=== PATIENT | female | born 1995 | race Caucasian/White ===

== ENCOUNTER 2018-03-04 23:16 | Emergency (ER) | payer SELFPAY ==
[~2018-03-04] VITALS: Ht 162.6 cm; Wt 47.2 kg
--- NOTE | 2018-03-05 00:44 | ED Lower Extremity ---
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 pt verbalized painful/ unable to walk. Nursing Sepsis Screen: No Definite Risk Source: patient Exam Limitations: no limitations History of Present Illness Date Seen by Provider: Mar 05, 2018 Time Seen by Provider: 00:15 Initial Comments Here with report of right ankle pain which is actually the top of the foot. 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 Does have history of tendon repair in the area of pain. Denies other injuries. Onset: this evening Severity: moderate Pain/Injury Location: right foot Method of Injury: twisted Modifying Factors: Improves With Immobilization; Worse With Movement Allergies and Home Medications Allergies Coded Allergies: No Known Drug Allergies (Unverified , 03/04/18) Patient Home Medication List Home Medication List Reviewed: Yes Constitutional: see HPI; No chills, No fever Respiratory: no symptoms reported Cardiovascular: no symptoms reported Musculoskeletal: see HPI, joint pain, joint swelling, muscle pain Skin: No change in color, No lesions Psychiatric/Neurological: No Symptoms Reported Past [id number] Hx Past Med/Social Hx: Reviewed Nursing Past Med/Soc Hx Patient Social History Alcohol Use: Denies Use Recreational Drug Use: No Smoking Status: Never a Smoker Recent Foreign Travel: No Contact w/Someone Who Travel: No Recent Infectious Disease Expo: No Past Medical History Surgeries: Yes Orthopedic Respiratory: No Cardiac: No Neurological: No Musculoskeletal: Yes (tendon rupture right foot) Family Medical History No Pertinent Family Hx Physical Exam Vital Signs Vital Signs - First Documented 03/04/18 23:30 Temp 96.0 Pulse 87 Resp 20 B/P (MAP) 89/60 (70) Pulse Ox 99 O2 Delivery Room Air Capillary Refill : Less Than 3 Seconds Height, Weight, BMI Height: 5'4.00" Weight: 104lbs. oz. [id number]; BMI Method:Stated General Appearance: WD/WN, no apparent distress Cardiovascular: regular rate, rhythm, no murmur Respiratory: lungs clear, normal breath sounds Ankles: left ankle non-tender, left ankle normal inspection, left ankle normal range of motion; right ankle soft tissue tenderness, right ankle swelling, right ankle other (area of soft tissue swelling and tenderness to the upper foot at the ankle mortise dorsally. There is old surgical scar at the area of concern. Retains range of motion of foot pain with dorsiflexing.) Feet: right foot pain, right foot soft tissue tenderness, right foot swelling Neurologic/Psychiatric: alert, oriented x 3 Skin: normal color, warm/dry Progress/Results/Core Measures Results/Orders My Orders Orders - BENJI OLSEN MD Ankle, Right, 3 Views (03/05/18 00:01) Foot, Right, 3 View (03/05/18 00:01) Tramadol Tablet (Ultram Tablet) (03/05/18 00:37) Vital Signs/I&O 03/04/18 23:30 Temp 96.0 Pulse 87 Resp 20 B/P (MAP) 89/60 (70) Pulse Ox 99 O2 Delivery Room Air Blood Pressure Mean: 70 Progress Progress Note : Progress Note Seen and evaluated. X-ray right foot and ankle. No acute fractures. Tramadol 50 mg by mouth. Segundo wrap and gel splint placed. Discharged home with return precautions. Patient verbalize understanding instructions and agreement with plan. Crutches given. Diagnostic Imaging Diagonstic Imaging: Xray Plain Films/CT/US/NM/MRI: ankle Comments No acute fracture Reviewed: Reviewed by Me Diagonstic Imaging: Xray Plain Films/CT/US/NM/MRI: other (right foot) Comments No acute fracture Departure Impression Primary Impression: Sprain and strain of foot Disposition: 01 HOME, SELF-CARE Condition: Stable Departure-Patient Inst. Decision time for Depature: 00:43 Referrals: NO,LOCAL PHYSICIAN (PCP) Primary Care Physician Patient Instructions: Ankle Sprain (DC) Add. Discharge Instructions: All discharge instructions reviewed with patient and/or family. Voiced understanding. You'll need to follow-up with your orthopedic surgeon for further evaluation of the foot as this is in the area of previous repair. You may take Tylenol 650 mg every 6 hours as needed for pain. You may take ibuprofen 600 mg every 8 hours as needed for pain. Use crutches, Segundo wrap and gel splint as needed. Use ice packs to affected area 20 minutes per hour. Elevate foot. Return for worse pain or swelling or other concerns as needed. BENJI OLSEN MD Mar 05, 2018 00:44
[2018-03-05 00:49] VITALS: BP 89/60
--- NOTE | 2018-03-05 08:33 | Diagnostic Imaging Report ---
INDICATION: Rolled ankle in heels. Pain. TECHNIQUE: 3 views of the right foot CORRELATION STUDY: None FINDINGS: The osseous structures of the foot are intact. Joint spaces are maintained. Alignment anatomic. Soft tissues appearing unremarkable. IMPRESSION: 1. Negative for acute findings of the foot. Dictated by: Dictated on workstation # [id number]
--- NOTE | 2018-03-05 08:34 | Diagnostic Imaging Report ---
INDICATION: Rolled ankle in heels. TECHNIQUE: Three views of the right ankle CORRELATION STUDY: None FINDINGS: There is suboptimal apparent positioning at time of imaging. Given this, the alignment overall appears to be intact. Definitive acute fractures not visualized. Ankle mortise appears generally maintained. Soft tissues unremarkable. Soft tissues are unremarkable. Limitation evaluation of the right ankle owing to positioning. No definite evidence for acute fracture. IMPRESSION: Negative for acute bony abnormality of the ankle. Dictated by: Dictated on workstation # [id number]
== END 2018-03-05 00:50 | disposition home or self-care (01) ==
LOC: ER 23:20
DX: S96.911A Strain of unspecified muscle and tendon at ankle and foot level, right foot, initial encounter (principal); X50.0XXA Overexertion from strenuous movement or load, initial encounter
CPT/HCPCS: 73610; 73630